=== PATIENT | male | born 1940 | race Caucasian/White ===

== ENCOUNTER 2016-11-27 14:01 | Day surgery (SDC) | payer MEDICARE, OTHER ==
[~2016-11-27] VITALS: Ht 177.8 cm; Wt 110.3 kg
[2016-11-27] MEDS ORDERED: LACTATED RINGER'S 1000 ML IV PRN (15:00)
[2016-11-27] MEDS ORDERED: CHLORHEXIDINE GLUCONATE 2 % 1 PACK (2 CLOTHS) TOPICAL PRN (15:00)
[2016-11-27] MEDS ORDERED: METOPROLOL TARTRATE 25 MG TAB PO PRN (15:00)
[2016-11-27] MEDS ORDERED: NS 1000 ML IV SCH (15:00)
[2016-11-27] MEDS ORDERED: MUPIROCIN 2% OINT 1 APPLIC/GM SYR NASAL SCH (15:00)
[2016-11-27] MEDS ORDERED: VANCOMYCIN 1000 MG/NS 250 ML IV SCH ×2 (15:00)
[2016-11-27] MEDS ORDERED: POVIDONE IODINE 5% (ANTISEPSIS KIT) 4 APPLICATIONS EACH NARE PRN (15:00)
[2016-11-27] MEDS ORDERED: POVIDONE IODINE 5% (ANTISEPSIS KIT) 4 APPLICATIONS EACH NARE SCH (15:00)
[2016-11-27] MEDS ORDERED: ceFAZolin 2 GM PREMIX 50 ML IV SCH ×2 (15:00→19:00)
[2016-11-27] MEDS ORDERED: SODIUM CHLORID 0.9% 500 ML IV PRN (15:00)
[2016-11-27] MEDS ORDERED: CHLORHEXIDINE GLUCONATE 2 % 1 PACK (2 CLOTHS) TOPICAL SCH (15:00)
[2016-11-27] MEDS ORDERED: INSULIN HUMAN REGULAR 1,000 UNITS/10 ML VIAL SQ PRN (15:00)
[2016-11-27 15:08] VITALS: BP 125/95; PULSE 85; RESP 18; TEMP 98; O2SAT 97
[2016-11-27] MEDS ORDERED: LEVEMIR SQ (15:08)
[2016-11-27] MEDS ORDERED: FURO80TA PO (15:08)
[2016-11-27] MEDS ORDERED: LOSA100T PO (15:08)
[2016-11-27] MEDS ORDERED: APIX2.5T PO (15:08)
[2016-11-27] MEDS ORDERED: HYDR25TA35 PO (15:08)
[2016-11-27] MEDS ORDERED: SEVEL800 PO (15:08)
[2016-11-27] MEDS ORDERED: ROPI1TAB PO (15:08)
[2016-11-27] MEDS ORDERED: RENOCAP PO (15:08)
[2016-11-27] MEDS ORDERED: LORA-361 PO (15:08)
[2016-11-27] MEDS ORDERED: VYTO10TA9 PO (15:08)
[2016-11-27] MEDS ORDERED: HUMA100I3 SQ (15:08)
[2016-11-27 15:19] LABS: AUTOMATED NEUTROPHIL # 5.5 TH/MM3 (1.8-7.7); BASOPHIL # 0.1 TH/MM3 (0-0.2); BASOPHIL % 1.1 % (0.0-2.0); EOSINOPHIL # 0.2 TH/MM3 (0-0.4); EOSINOPHIL % 3.4 % (0.0-4.0); HEMATOCRIT 37.6 % (39.0-51.0); HEMO FLAGS DIFF FINAL; LYMPH % 11.5 % (9.0-44.0); LYMPHOCYTE # 0.8 TH/MM3 (1.0-4.8); MEAN CELL VOLUME 93.4 FL (80.0-100.0); MEAN CORPUSCULAR HEMOGLOBIN 30.6 PG (27.0-34.0); MEAN CORPUSCULAR HGB CONC 32.8 % (32.0-36.0); MONO % 8.5 % (0.0-8.0); NEUT % 75.5 % (16.0-70.0); PLATELET COUNT 146 TH/MM3 (150-450); RED BLOOD COUNT 4.02 MIL/MM3 (4.50-5.90); RED CELL DISTRIBUTION WIDTH 15.1 % (11.6-17.2); WHITE BLOOD COUNT 7.3 TH/MM3 (4.0-11.0)
[2016-11-27 15:38] LABS: APTT (PATIENT) 25.2 SEC (24.3-30.1); BICARBONATE 29.2 MEQ/L (21.0-32.0); POTASSIUM 3.9 MEQ/L (3.5-5.1); PROTHROMBIN TIME - PATIENT 10.7 SEC (9.8-11.6)
[2016-11-27] MEDS ORDERED: MIDAZOLAM HCL 2 MG/2 ML VIAL ONE (17:08)
[2016-11-27] MEDS ORDERED: PROPOFOL 200 MG/20 ML AMP IV ONE (17:10)
[2016-11-27] MEDS ORDERED: LIDOCAINE HCL 2% 50 ML VIAL ONE (17:12)
[2016-11-27] MEDS ORDERED: VANCOMYCIN 500 MG VIAL ONE (17:12)
[2016-11-27] MEDS ORDERED: VANCOMYCIN INJ 1,000 MG in SODIUM CHLOR 0.9% 250 ML INJ 250 ML IV ONE (18:30)
--- NOTE | 2016-11-27 18:31 | CATHPROC ---
[facility] HIS Report Study Information Study Number Scheduled Start Study Start [id number] 11/27/2016 Nov 27 2016 4:59PM Referring Institution Admit Source Facility Department 1 Other [facility] Physician and Clinical Staff Initial Thee Arroyo Paper Sealer Winifred Dc,JEWELLERY DESIGNER TECH2 Paper Sealer Matilda Nino RCIS Other Anesthesia, LIBRARY PAGE Recorder Laura Mukherjee,RN Scrub David Godinez,RT(R) Procedures Performed Procedure Lead Insertion Equipment Time Delivery Representative Description Size Mfg Part Number Used/Scraped 17:03 [employer] MEDICAL DRAPE, [place] X-RAY 12X17 12X17 D-100 Used MPIS-502-10.0- INTRODUCER SET, 17:03 [employer] FR 5 SC-NT-U-SST Used MICROPUNCTURE, STIFFENED *[id number] 17:03 [employer] DRAPE, IOBAN 2 [id number] 26cm x 20cm [id number] Used TP-1103 17:03 [employer] SUTURE, STRIP PLUS 1/2" * Used *[id number] 17:03 [employer] PACER ADHESIVE, MASTISOL 2/3CC 2/3CC 0523-48 Used 17:03 [employer] PACER FIGUEROA, LIMB * 2530 Used [id number] 17:03 [employer] PACER PACK, PACER CUSTOM * Used *[id number] 17:03 [employer] PACER PEN, SKIN DUAL W/ RULER * [id number] Used 17:24 [employer] PACER SAFE SHEATH, FR8, 13CM FR 8 CLS-1008 Used PROBE COVER, STERILE 17:03 [employer] * [id number] Used ULTRASOUND W/ GEL 17:38 Needle Sponge Count 2 22 Used 17:38 Needle Sponge Count 25 1 Used 17:38 Needle Sponge Count 3 3 Used SUTURE, 0 ETHIBOND [CT1] (CX21D), 8pk SUTURE, 2-0 VICRYL [CT1] ([id number]) SUTURE, 2-0 VICRYL [CT1] ([id number]) SUTURE, 4-0 VICRYL [PS2] (TOC329F) [id number] 17:03 [employer],WARM AIR CCL * Used *[id number] LEAD, TENDRIL ACTIVE FIXATION 18:00 [employer] 52CM [id number] Used BIPOLAR [place] PAD, ELECTROSURGICAL 17:03 * [id number] Used SURGICAL GROUNDING ORANGE 17:03 [employer]. ELECTRODE, PRO-PADZ BIPHASIC * [id number] Used Equipment Model, Serial, Lot Number and Expiration Data Description Model Number Serial Number Lot Number Expiration Date LEAD, TENDRIL ACTIVE FIXATION [id number] 02-12-2017 BIPOLAR History: Allergies Allergy Reaction Amlodipine Baclofen Ciprofloxacin Contrast Media Lipitor Nifedipine Procardia History: Risk Factors Hypertension Dyslipidemia Previous Heart Failure Yes Yes Yes Cerebrovascular Diabetes Diabetes Therapy Disease Labs Hgb (g/dl) Hct (%) RBC (MIL/MM3) WBC (l/cumm) Platelets (thousands) 12.00-18.00 37.00-55.00 4.80-6.20 4.80-10.80 140.00-450.00 12.0 37 4 7.3 146 Glucose (mg/dl) BUN (mg/dl) Creatinine (mg/dl) BUN:Creatinine (1:x) 60.00-110.00 8.00-20.00 0.10-9.00 10.00-20.00 115 28 4.1 6.8 Na (meq/l) K (meq/l) 138.00-146.00 3.80-5.10 137 3.9 INR (PTT:PT) 0.50-2.00 1 Medication Medication Total Dose (Bolus/Oral) Medication Total Dosage/Unit 2% XYLOCAINE 50 mL Medications (Bolus/Oral) Medication Time Given Dosage/Unit Administered By Reason 2% XYLOCAINE 11/27/2016 5:46:56 PM 50 mL Thee Cerna 50 mL 2% XYLOCAINE given in lab by Thee Cerna in Right shoulder via Subcutaneous. Ordered by Thee Cabrera. Medication (Drip) Medication Time Given Dosage/Unit Concentration/Unit Diluent (ml) Solution ANCEF 11/27/2016 5:18:59 PM 1 g 1 g ANCEF given in lab by Anesthesia, LIBRARY PAGE in Right Antecubital via Peripheral IV. Ordered by Thee Cerna. Reason: As per physicians verbal order. VANCOMYCIN DRIP 11/27/2016 5:18:00 PM 1 g 1 g VANCOMYCIN DRIP given in lab by Anesthesia, LIBRARY PAGE in Right Antecubital via Peripheral IV. Ordered by Thee Cerna. Reason: As per physicians verbal order. Initial Case Assessment Cardiovascular HR NIBP Chest Pain 56 223/107 0 Edema Present Skin color Skin Mild Normal Warm Dry Circulatory - Right Pulses Radial 1 Scale (0,1,2,3,4,d) Scale (0,1,2,3,4,d) Circulatory - Lower Extremities Color Lower Right Color Lower Left Normal Normal Neurological State Oriented to time-place- Alert Moves all extremities person Respiration - General Respiration Rate SpO2 (%) (B/min) 21 99 Final Case Assessment Cardiovascular HR Rhythm NIBP Chest Pain 60 svp group director 99/55 0 Edema Present Skin color Skin Mild Normal Warm Dry Circulatory - Right Pulses Radial 1 Scale (0,1,2,3,4,d) Scale (0,1,2,3,4,d) Circulatory - Lower Extremities Color Lower Right Color Lower Left Normal Normal Neurological State Lethargic Moves all extremities Respiration - General Respiration Rate SpO2 (%) O2 (lpm) (B/min) 18 100 6 Chronological Log Time Study Chronological Log 17:10:02 Patient arrived via Bed. 17:10:03 Patient Name, D.O.B, / Armband Verified By R.N. 17:10:04 Consent signed by the physician and the patient and verified by the Np staff. 17:10:04 Pre-op and post- op instructions given; patient acknowledges understanding of instructions. 17:10:05 Verbal Stimulation=2 Physical Stimulation=2 Airway=2 Respiration=2 TOTAL=8. (0=absent, 1=li mited, 2=present) 17:10:05 Anesthesia at bedside. Assumes care of patient. 17:10:07 Patient has been NPO for More than 6Hrs. 17:10:20 Skin Breakdown- right lower leg reddened and with scabs 17:10:36 Patient Warmer Placed on the Table. 17:10:37 Disposable Defibrillator Pads Placed On Patient. 17:10:38 Sara Prominences Protected 17:10:41 A # 20 IV was noted in the Antecubital (right). Grade = 0 0.9ns kvo 17:10:59 History and physical on the chart. 1 g VANCOMYCIN DRIP given in lab by Anesthesia, LIBRARY PAGE in Right Antecubital via Peripheral IV. Or dered by Quadrat, 17:18:00 Thee. Reason: As per physicians verbal order. 1 g ANCEF given in lab by Anesthesia, LIBRARY PAGE in Right Antecubital via Peripheral IV. Ordered by Thee Marquez. 17:18:59 Reason: As per physicians verbal order. Assessment: Initial Case, HR=56 BPM, GIKT=319/107 mmhg, Chest Pain=0, Edema=Mild, Color=Normal, Skin = Warm, Dry Right Pulses: Radial=1 17:20:20 Lower Right Extremities: Color=Normal Lower Left Extremities: Color=Normal Neurological: State=Alert, Ox3, ESTRADA Respiration: Resp=21 B/min, SpO2=99 % 17:21:38 Table restraints applied according to hospital policy 17:21:51 Bovie ground pad applied to: right thigh 17:23:14 2% CHLORHEXIDINE GLUCONATE WASH AND NASAL SWIPE DONE PRIOR TO PROCEDURE. 17:23:19 Right Upper Chest Prepped Times Two. First Sponge And Instrument Count Done by David Godinez, RT(R). 17:28:43 Hypo's: 3, Sponges: 25, Bovie/scratch: 2 Sutures: 11, Blades: 2, Instruments: 26, Syveck Patches: 0 17:39:06 Reference ECG taken 17:41:45 MD paged 17:43:16 MD arrived. 17:43:25 [facility]ai Rep present. Time Out. Correct patient, procedure, procedure equipment, site and side verified with physicia n present. Time 17:46:00 concurred by MD, individual staff and LIBRARY PAGE. Time Out #2 - Consents verified, patient in correct position, all results are labled and displa yed, safety precautions 17:46:22 taken, antibiotics administered. Time out concurred by MD, individual staff and LIBRARY PAGE in procedu re 17:46:31 Case Start 50 mL 2% XYLOCAINE given in lab by Thee Cerna in Right shoulder via Subcutaneous. Ordered by Nehemiah, 17:46:56 Thee. 17:48:44 Surgical Incision Made. 17:53:35 A pocket was created at the R Upper Chest. 17:54:48 One antibiotic sponge put into the surgical pocket. 17:59:06 Vascular access was obtained in the Subclav. Vein (Rt). 17:59:11 Wire inserted 18:00:58 A LEAD, TENDRIL ACTIVE FIXATION BIPOLAR 52CM was inserted and positioned in the RV. 18:01:11 Lead placement verified under fluoroscopy 18:03:31 The RV lead impedance and threshold being tested. 18:09:37 Antibiotic sponge removed from the surgical pocket. 18:09:42 Pocket flushed with antibiotic solution A implantable was connected and placed in the pocket. Assurity MRI Pulse Generator, [id number], SN: [id number], EX: 18:10:31 04/14/2018 Second Sponge And Instrument Count Done by David Godinez, RT(R). 18:13:15 Hypo's: 3, Sponges: 25, Bovie/scratch: 2 Sutures: 11, Blades: 2, Instruments: 26, Syveck Patches: 0 18:15:44 The pocket was closed. 18:15:48 Implant Procedure was performed. 18:15:51 A PPM Implant . (Single) 18:17:10 DOCU called. Spoke to [place] 18:17:22 Bedside Report will be given. Final Sponge And Instrument Count Done by David Godinez RT(R). 18:28:28 Hypo's: 3, Sponges: 25, Bovie/scratch: 2 Sutures: 11, Blades: 2, Instruments: 26, Syveck Patches: 0 Assessment: Final Case, HR=60 BPM, Rhythm=svp group director, NIBP=99/55 mmhg, Chest Pain=0, Edema=Mild, Color =Normal, Skin = Warm, Dry Right Pulses: Radial=1 18:28:33 Lower Right Extremities: Color=Normal Lower Left Extremities: Color=Normal Neurological: State=Lethargic, ESTRADA Respiration: Resp=18 B/min, VeM5=945 %, O2=6 lpm 18:28:38 Case End 18:28:51 Sterile dressing applied to site 18:28:53 No case complications noted. 18:28:54 Cine recording checked. 18:30:57 Defibrillator and ground pads removed. Skin intact. 18:40:40 Patient moved to stretcher End Study - Contrast Media Used In Study Contrast Total Opened (mL) Total Used (mL) Total Wasted (mL) Unspecified 0 0 0 End Study - Maximum Contrast Load Max Contrast Load (mL) 134.5 End Study - Radiation Exposure Fluoro Time (minutes) 1.9 End Study - Patient Disposition Complications Transferred To Interventional Outcome No Telemetry Bed successful
[2016-11-27] MEDS ORDERED: hydrALAZINE HCL 20 MG/ML VIAL ONE (19:53)
[2016-11-27 20:00] VITALS: BP 182/75; PULSE 66; RESP 18; TEMP 98.1; O2SAT 94
[2016-11-27] MEDS ORDERED: hydrALAZINE HCL 20 MG/ML VIAL IV ONE (20:30)
--- NOTE | 2016-11-27 20:57 | RADRPT ---
EXAM DATE/TIME: 11/27/2016 20:40 [place] COMPARISON: No previous studies available for comparison. INDICATIONS : Pneumothorax, post pacemaker. MEDICAL HISTORY : None. SURGICAL HISTORY : None. ENCOUNTER: Initial ACUITY: 1 day PAIN SCORE: Non-responsive. LOCATION: Bilateral chest FINDINGS: A single view of the chest demonstrates the lungs to be symmetrically aerated without evidence of mas s, infiltrate or effusion. Cardiomegaly with central pulmonary vascular congestion. Right-sided pace maker with single intact lead. The cardiomediastinal contours are unremarkable. Osseous structures a re intact. CONCLUSION: Cardiomegaly with central pulmonary vascular congestion. Trev Mccoy MD on November 27, 2016 at 20:55 Board Certified Radiologist. This report was verified electronically.
[2016-11-27] MEDS ORDERED: PRAVASTATIN SOD 80 MG TAB PO SCH (21:00)
[2016-11-27] MEDS ORDERED: EZETIMIBE 10 MG TAB PO SCH (21:00)
[2016-11-27] MEDS ORDERED: NON-FORMULARY DRUG (Ezetimibe-Simvastatin (Vytorin) 1 TAB) PO SCH (21:00)
[2016-11-27] MEDS: FUROSEMIDE 80 MG TAB PO SCH (21:00)
[2016-11-27] MEDS ORDERED: INSULIN DETEMIR 100 UNITS/ML VIAL SQ SCH (21:00)
[2016-11-28] MEDS ORDERED: VITAMIN B CMPLX/VITC/FOLIC AC CAP PO SCH (09:00)
[2016-11-28] MEDS ORDERED: hydrALAZINE HCL 25 MG TAB PO SCH (09:00)
[2016-11-28] MEDS ORDERED: SEVELAMER CARBONATE 800 MG TAB PO SCH (09:00)
[2016-11-28] MEDS ORDERED: LOSARTAN 50 MG TAB PO SCH (09:00)
[2016-11-28] MEDS: FUROSEMIDE 80 MG TAB PO SCH (09:00)
[2016-11-28] MEDS ORDERED: LORATADINE 10 MG TAB PO SCH (09:00)
--- NOTE | 2016-11-28 11:47 | MR ---
cc: HAVEN LOPEZ DATE 11/27/2016 INDICATIONS Sick sinus syndrome, symptomatic bradycardia, chronic atrial fibrillation with slow ventricular response. PROCEDURE PERFORMED Placement of [employer]ai single chamber pacemaker. ACCESS SITE Right subclavian vein EQUIPMENT USED Generator is [employer]ai Assurity MRI model [id number] single chamber pacemaker, serial number [id number]. Right ventricular lead is [employer]ai Tendril MRI model [id number] 52 cm screw-in ventricular lead, serial number [id number]. LEAD TESTING Right ventricular lead R-wave 12.0 millivolts, lead impedance 740 ohms, pacing threshold 0.5 volts at 0.5 milliseconds. Pacing at 10 V, no diaphragmatic stimulation. Parameters mode DDDR, lower rate 60, upper rate 130. DIAGNOSIS Successful placement of [employer] Isai single chamber pacemaker. DISPOSITION Mr. Burnham will be monitored on telemetry with serial chest x-rays. He will be scheduled for a wound check and chronic device reprogramming in our office within two weeks. He will then see Dr. Luna,his primary sand mill operator core sand, for long-term device followup. MD SMITH Rene/MILADIS /6:31 PM /11:43 AM [place]if[place]
[2016-11-28 11:59] VITALS: BP 189/76; PULSE 62; RESP 18; TEMP 97.9; O2SAT 96
--- NOTE | 2016-11-28 14:01 | EKG ---
Date Performed: 11/28/2016 Time Performed: 04:53:46 PTAGE: 76 years EKG: Atrial fibrillation with PVC(s) Rightward axis Incomplete RBBB Right ventricular hypertroph y Lateral ST changes are nonspecific Abnormal ECG PREVIOUS TRACING : 11/27/2016 15.10 Compared to prior tracing no significant change DOCTOR: Ender Alberto Interpretating Date/Time 11/28/2016 14:00:36
--- NOTE | 2016-11-28 14:02 | EKG ---
Date Performed: 11/27/2016 Time Performed: 15:10:26 PTAGE: 76 years EKG: Atrial fibrillation with slow ventricular response with PVC(s). Prolonged QT interval Poor R wave progression - probable normal variant Anterior T wave changes are nonspecific Abnormal ECG PREVIOUS TRACING : 12/29/1998 13.51 Compared to prior tracing no significant change DOCTOR: Ender Alberto Interpretating Date/Time 11/28/2016 14:00:46
--- NOTE | 2016-11-28 14:23 | PD.CARD.PN ---
Subjective Subjective Remarks No CP or SOB, feels well Objective Medications Current Medications Medications (Trade) Dose Ordered Sig/Hunter Route Start Time Stop Time Status Last Admin Lactated Ringer's 1,000 ml @ 30 mls/hr Q24H PRN IV 11/27/16 15:00 11/30/16 14:59 Sodium Chloride 500 ml @ 30 mls/hr [id number] PRN IV 11/27/16 15:00 11/30/16 14:59 (NS 1000 ml Inj) 1,000 ml @ 30 mls/hr Q24H IV 11/27/16 15:00 (Nephrocaps) 1 cap DAILY PO 11/28/16 09:00 11/28/16 09:00 (Lasix) 80 mg BID PO 11/27/16 21:00 11/28/16 09:00 (Apresoline) 25 mg TID PO 11/28/16 09:00 11/28/16 09:00 (Claritin) 10 mg DAILY PO 11/28/16 09:00 11/28/16 09:00 (Cozaar) 100 mg DAILY PO 11/28/16 09:00 11/28/16 09:00 (Requip) 1 mg TID PO 11/28/16 09:00 (Renvela) 800 mg TID PO 11/28/16 09:00 11/28/16 09:00 (Zetia) 10 mg HS PO 11/27/16 21:00 11/27/16 21:00 (Pravachol) 80 mg HS PO 11/27/16 21:00 11/27/16 21:00 (Levemir Inj) 25 units HS SQ 11/27/16 21:00 11/27/16 21:25 Vital Signs / I&O Vital Signs Date Time Temp Pulse Resp B/P Pulse Ox O2 Delivery O2 Flow Rate FiO2 11/28/16 11:59 97.9 62 18 189/76 96 11/27/16 20:27 98 Room Air 11/27/16 20:00 98.1 66 18 182/75 94 11/27/16 15:08 98.0 85 18 125/95 97 I/O 11/27/16 11/27/16 11/27/16 11/28/16 11/28/16 11/28/16 07:00 15:00 23:00 07:00 15:00 23:00 Intake Total 830 ml 240 ml Balance 830 ml 240 ml Intake Oral 480 ml 240 ml IV Total 350 ml # Voids 1 # Bowel Movements 1 Physical Exam GENERAL: In NAD SKIN: Warm and dry. HEAD: Normocephalic. EYES: No scleral icterus. No injection or drainage. NECK: Supple, trachea midline. No JVD or lymphadenopathy. CARDIOVASCULAR: Regular rate and rhythm without murmurs, gallops, or rubs. RESPIRATORY: Breath sounds equal bilaterally. No accessory muscle use. GASTROINTESTINAL: Abdomen soft, non-tender, nondistended. MUSCULOSKELETAL: No cyanosis, or edema. Wound clean. Laboratory Laboratory Tests Test 11/27/16 14:52 White Blood Count 7.3 TH/MM3 Red Blood Count 4.02 MIL/MM3 Hemoglobin 12.3 GM/DL Hematocrit 37.6 % Mean Corpuscular Volume 93.4 FL Mean Corpuscular Hemoglobin 30.6 PG Mean Corpuscular Hemoglobin 32.8 % Concent Red Cell Distribution Width 15.1 % Platelet Count 146 TH/MM3 Mean Platelet Volume 9.0 FL Neutrophils (%) (Auto) 75.5 % Lymphocytes (%) (Auto) 11.5 % Monocytes (%) (Auto) 8.5 % Eosinophils (%) (Auto) 3.4 % Basophils (%) (Auto) 1.1 % Neutrophils # (Auto) 5.5 TH/MM3 Lymphocytes # (Auto) 0.8 TH/MM3 Monocytes # (Auto) 0.6 TH/MM3 Eosinophils # (Auto) 0.2 TH/MM3 Basophils # (Auto) 0.1 TH/MM3 CBC Comment DIFF FINAL Differential Comment Prothrombin Time 10.7 SEC Prothromb Time International 1.0 RATIO Ratio Activated Partial 25.2 SEC Thromboplast Time Sodium Level 137 MEQ/L Potassium Level 3.9 MEQ/L Chloride Level 101 MEQ/L Carbon Dioxide Level 29.2 MEQ/L Anion Gap 7 MEQ/L Blood Urea Nitrogen 28 MG/DL Creatinine 4.10 MG/DL Estimat Glomerular Filtration 14 ML/MIN Rate Random Glucose 115 MG/DL Calcium Level 9.4 MG/DL Imaging Last Impressions Chest X-Ray 11/27/16 0000 Signed Impressions: Service Date/Time: Sunday, November 27, 2016 20:40 - CONCLUSION: Cardiomegaly with central pulmonary vascular congestion. Trev Mccoy MD Assessment and Plan Problem List: (1) SSS (sick sinus syndrome) (2) Atrial fibrillation (3) Bradyarrhythmia (4) ESRD (end stage renal disease) on dialysis Assessment and Plan Normal pacemaker fx. Wound healing well. DC home. F/u w me within 2 weeks. Resume Eliquis tomorrow AM. Thee Cerna MD November 28, 2016 14:23
== END 2016-11-28 15:13 | disposition home or self-care (01) ==
LOC: HDOC 14:01 → HDIC 14:01 → HDOC 11-28 15:13
PROVIDERS: ATTEND Internal Medicine Interventional Cardiology
DX: I49.5 Sick sinus syndrome (principal); I50.9 Heart failure, unspecified; I48.2 Chronic atrial fibrillation; R00.1 Bradycardia, unspecified; E11.9 Type 2 diabetes mellitus without complications; N18.6 End stage renal disease; I73.9 Peripheral vascular disease, unspecified; E78.5 Hyperlipidemia, unspecified; Z99.2 Dependence on renal dialysis; Z79.4 Long term (current) use of insulin
CPT/HCPCS: 33207; 71010; 80048; 82948; 85025; 85610; 85730; 93005; C1786; C1898; J0360; J0690; J2250; J3010; J3370; J7050